=== PATIENT | male | born 1990 | race Caucasian/White ===

== ENCOUNTER 2021-02-05 12:31 | Emergency (ER) | payer OTHER ==
[~2021-02-05] VITALS: Ht 188 cm; Wt 100.0 kg
[2021-02-05 12:34] VITALS: Ht 188 cm; Wt 100.0 kg
[2021-02-05] MEDS ORDERED: DICLOFENAC SODI50 MG PO (13:33)
[2021-02-05 13:45] VITALS: BP 132/80
== END 2021-02-05 13:46 | disposition home or self-care (01) ==
LOC: D.ER 12:31
DX: S93.401A Sprain of unspecified ligament of right ankle, initial encounter (principal); X50.9XXA Other and unspecified overexertion or strenuous movements or postures, initial encounter; Y93.9 Activity, unspecified; Y92.9 Unspecified place or not applicable